=== PATIENT | female | born 1970 | race Caucasian/White ===

== ENCOUNTER 2016-11-25 18:12 | Emergency (ER) | payer SELFPAY ==
[~2016-11-25 18:12] MED LIST: AMOXICILLIN500 M PO; CELEXA20 M2 PO; CELEXA40 M1 PO; CYCLOBENZAPRINE5 M1 PO; NEXIUM40 MG PO; NORCO 5-325 TA1 EACH PO; PENICILLIN V P500 M1 PO; PREVACID15 MG PO; SUDAFED 12 HOU120 MG PO; ZANTAC150 MG PO; ZOFRAN ODT4 MG/UDTAB PO
[2016-11-25] MEDS ORDERED: NORCO 5-325 TA1 EACH PO (19:54)
== END 2016-11-25 20:11 ==
LOC: EDMED 18:12
PROC: 2W3DX1Z Immobilization of Left Lower Arm using Splint (ICD-10-PCS; principal; 2016-11-25)
DX: S82.52XA Displaced fracture of medial malleolus of left tibia, initial encounter for closed fracture (principal); V49.40XA Driver injured in collision with unspecified motor vehicles in traffic accident, initial encounter; Y92.410 Unspecified street and highway as the place of occurrence of the external cause